=== PATIENT | male | born 1985 | race Caucasian/White ===

== ENCOUNTER 2018-10-22 19:26 | Emergency (ER) | payer MEDICAID, SELFPAY ==
[2018-10-22 19:27] VITALS: BP 145/97; PULSE 100; RESP 16; TEMP 36.7; O2SAT 99; BMI 36.1
--- NOTE | 2018-10-22 20:25 | RAD_ITS ---
STUDY: X-RAY - LEFT ANKLE REASON FOR EXAM: Male, 33 years old. Injury. TECHNIQUE: 3 view(s) of the ankle. COMPARISON: None. FINDINGS: Normal visualized distal tibia and fibula. Normal medial and lateral malleoli. Normal tibiotalar articulation and ankle mortise. Normal visualized talus and calcaneus. The visualized subtalar, talonavicular, calcaneocuboid and tarsal articulations are normal. There is no demonstrated fracture. The soft tissue structures are unremarkable. RAD/Ankle min 3 Views IMPRESSION: Normal x-ray examination of the ankle. Electronically Signed: Mohinder Gomez MD at 20:39 EDT , Service support ,
[2018-10-22] MEDS: HYDROcodone Bitartrate/Apap 5/325 Tablet PO (20:26)
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
--- NOTE | 2018-10-22 21:26 | ED.DEP ---
ED Disposition - Plan for ED Patient: Disposition: Home or Assisted Living Instructions: CONTUSION, Lower Extremity Prescriptions: Hydrocodone/Acetaminophen [[place] 5-325 Tablet] 1 ea PO 4X/DAY PRN PRN 3 Days #10 tab PRN Reason: Pain Prescription Printed Referrals: Iain Holt DPM [STAFF PHYSICIAN] - 1 Week if not improving Additional Instructions: Ice and elevate your left ankle to decrease pain and swelling. Motrin for pain and swelling. [place] for more severe pain. Follow-up with the general practice if not improving. Increase weightbearing as tolerated. Aircast and crutches as needed.
[2018-10-22 21:53] VITALS: RESP 17
== END 2018-10-22 21:54 | disposition home or self-care (01) ==
PROVIDERS: Emergency Provider Emergency Medicine
DX: S90.00XA Contusion of unspecified ankle, initial encounter (principal); Y04.2XXA Assault by strike against or bumped into by another person, initial encounter; Y93.9 Activity, unspecified; Y92.89 Other specified places as the place of occurrence of the external cause; Y99.9 Unspecified external cause status; K51.90 Ulcerative colitis, unspecified, without complications; Z72.0 Tobacco use
CPT/HCPCS: 73610; 99285